=== PATIENT | male | born 1965 | race Two or more races ===

== ENCOUNTER 2024-12-25 20:32 | Inpatient (IN) | payer MEDICARE, OTHER ==
[~2024-12-25] VITALS: Ht 177.8 cm; Wt 105.7 kg
--- NOTE | 2024-12-25 20:53 | ED.PDOC ---
Altered Mental Status HPI Comments 59 year old male presents to the ED with the c/c of Generalized weakness. Per EMS a by standard called 911 because they noticed pt wandering mindlessly in his wheel chair, and being confused about where he was going. Pt is aware of questions being asked, but it very hard to understand at this period in time. Pt notes that he has Mental problems. Pt has a PMHx of Seizures, and is potentially Homeless at this period in time. No Trauma noted. Time Seen by MD: 20:48 Reviewed Notes: Nurses Notes, Chief Environmental Commitment Officer Notes, Medications, Allergies Allergies: Coded Allergies: NO KNOWN ALLERGIES (Unverified , 12/25/24) Information Source: Patient, Emergency Med Personnel Mode of Arrival: EMS Severity: Mild Timing: Hours Duration: Since onset Prehospital treatment: None Quality: Decreased Alertness Recent: None History of: Seizure Associated Signs and Symptoms: None Past Medical History PAST MEDICAL HISTORY: Unknown Surgical History: Denies all surgeries Social History Smoker: Unknown Alcohol: Unknown Drugs: Unknown Lives In: Homeless Constitutional: reports: weakness; denies: chills, diaphoresis, fatigue, fever, malaise, sweats, others EENTM: denies: blurred vision, double vision, ear bleeding, ear discharge, ear drainage, ear pain, ear ringing, eye pain, eye redness, hearing loss, mouth pain, mouth swelling, nasal discharge, nose bleeding, nose congestion, nose pain, photophobia, tearing, throat pain, throat swelling, voice changes, others Respiratory: denies: cough, hemoptysis, orthopnea, SOB at rest, shortness of breath, SOB with excertion, stridor, wheezing, others Cardiovascular: denies: chest pain, dizzy spells, diaphoresis, Dyspnea on exertion, edema, irregular heart beat, left arm pain, lightheadedness, palpitations, PND, syncope, others Gastrointestinal: denies: abdomen distended, abdominal pain, blood streaked bowels, constipated, diarrhea, dysphagia, difficulty swallowing, hematemesis, melena, nausea, poor appetite, poor fluid intake, rectal bleeding, rectal pain, vomiting, others Genitourinary: denies: burning, dysuria, flank pain, frequency, hematuria, incontinence, penile discharge, penile sore, pain, testicle pain, testicle swelling, urgency, others Neurological: reports: speech problems, others (Confusion); denies: dizziness, fainting, headache, left sided numbness, left sided weakness, numbness, paresthesia, pre-existing deficit, right sided numbness, right sided weakness, seizure, tingling, tremors, weakness Musculoskeletal: denies: back pain, gout, joint pain, joint swelling, muscle pain, muscle stiffness, neck pain, others Integumetry: denies: bruises, change in color, change in hair/nails, dryness, laceration, lesions, lumps, rash, wounds, others Allergic/Immunocompromised: denies: Difficulty Healing, Frequent Infections, Hives, Itching, others Hematologic/Lymphatic: denies: anemia, blood clots, easy bleeding, easy bruising, swollen glands, others Endocrine: denies: excessive hunger, excessive sweating, excessive thirst, excessive urination, flushing, intolerance to cold, intolerance to heat, unexplained weight gain, unexplained weight loss, others Psychiatric: denies: anxiety, bipolar disorder, depression, hopeless, panic disorder, schizophrenia, sleepless, suicidal, others All Other Systems: Reviewed and Negative Physical Exam General Appearance: Normal, Other (Chronic ill appearing) HEENT: Normal ENT Inspection, Pharynx Normal, TMs Normal Neck: Full Range of Motion, Non-Tender, Normal, Normal Inspection Respiratory: Chest Non-Tender, Lungs Clear, No Accessory Muscle Use, No Respiratory Distress, Normal Breath Sounds Cardiovascular: No Edema, No JVD, No Murmur, No Gallop, Normal Peripheral Pulses, Regular Rate/Rhythm Breast Exam: Deferred Gastrointestinal: No Organomegaly, Non Tender, No Pulsatile Mass, Normal Bowel Sounds, Soft Genitalia: Deferred Pelvic: Deferred Rectal: Deferred Extremities: No calf tenderness, Normal capillary refill, Normal inspection, Normal range of motion, Non-tender, No pedal edema Musculoskeletal : Apperance: Normal Neurologic: Alert, 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 Was a procedure done?: No Differential Diagnosis (ALOC) Differential Diagnosis: Dehydration, Hypoglycemia, DKA, Encephalopathy, Meningitis, Sepsis, Hypoxemia, Seizure, CVA, Mass Lesion, SAH, Drug Overdose, ETOH Intoxication, Other X-Ray, Labs, Meds, VS Vital Signs Date Time Temp Pulse Resp B/P (MAP) Pulse Ox O2 Delivery O2 Flow Rate FiO2 12/25/24 20:40 98.0 110 16 144/93 (110) 94 98.0 12/25/24 20:33 110 Lab Test 12/25/24 20:51 Range/Units White Blood Count 12.7 H 4.4-10.8 10^3/uL Red Blood Count 5.22 4.5-5.90 10^6/uL Hemoglobin 15.0 13.5-17.5 g/dL Hematocrit 44.8 41.0-53.0 % Mean Corpuscular Volume 85.9 80.0-100.0 fL Mean Corpuscular Hemoglobin 28.7 28.0-32.0 pg Mean Corpuscular Hemoglobin Concent 33.4 32.0-36.0 g/dL Red Cell Distribution Width 13.4 11.8-14.3 % Platelet Count 281 140-450 10^3/uL Mean Platelet Volume 8.2 6.9-10.8 fL Neutrophils (%) (Auto) 69.4 37.0-80.0 % Lymphocytes (%) (Auto) 23.0 10.0-50.0 % Monocytes (%) (Auto) 5.9 0.0-12.0 % Eosinophils (%) (Auto) 0.7 0.0-7.0 % Basophils (%) (Auto) 1.0 0.0-2.0 % Neutrophils # (Auto) 8.8 H 1.6-8.6 10 ^3/uL Lymphocytes # (Auto) 2.9 0.4-5.4 10 ^3/uL Monocytes # (Auto) 0.8 0-1.3 10 ^3/uL Eosinophils # (Auto) 0.1 0-0.8 10 ^3/uL Basophils # (Auto) 0.1 0-0.2 10 ^3/uL Nucleated Red Blood Cells 0.1 % Sodium Level 143 136-145 mmol/L Potassium Level 4.3 3.5-5.1 mmol/L Chloride Level 107 98-107 mmol/L Carbon Dioxide Level 25 20-31 mmol/L Anion Gap 11 5-15 Blood Urea Nitrogen 19 9-23 mg/dL Creatinine 1.14 0.700-1.30 mg/dL Glomerular Filtration Rate Calc 74 >90 mL/min BUN/Creatinine Ratio 16.7 10.0-20.0 Serum Glucose 126 H 74-106 mg/dL Calcium Level 10.4 8.7-10.4 mg/dL Total Bilirubin 0.3 0.2-1.0 mg/dL Aspartate Amino Transferase (AST) 14 13-40 U/L Alanine Aminotransferase (ALT) 15 7-40 U/L Alkaline Phosphatase 101 46-116 U/L Total Protein 7.5 5.7-8.2 g/dL Albumin 4.6 3.2-4.8 g/dL Salicylates Level < 3.0 -30 mg/dL Acetaminophen Level < 2.0 L 10.0-20.0 UG/ML Plasma/Serum Blood Alcohol < 3.0 <10 mg/dL Time of 1ST Reevaluation: 21:10 Reevaluation 1ST: Unchanged Patient Education/Counseling: Diagnosis, Treatment Family Education/Counseling: No Family Present Departure 1 Departure Time of Disposition: 04:21 Impression: Primary Impression: Schizophrenia Disposition: 64 [facility] Condition: Stable Discharged With: Self Comments Patient is cleared medically at this time. Labs reviewed. Requested mental health consultation and possible voluntary placement for mental health. Critical Care Note Critical Care Time?: No Stability Stability form required: No Heart Score Heart Score: Heart Score Response (Comments) Value History N/A 0 EKG N/A 0 Age N/A 0 Risk Factors N/A 0 Troponin N/A 0 Total 0 I personally scribed for SHIVAM PEREZ MD ([email or web address]) on 12/25/24 at 20:53. Electronically submitted by Reza Jones ([email or web address]). SHIVAM PEREZ MD December 25, 2024 20:53
[2024-12-25 21:33] LABS: Basophils # (auto) 0.1 10 ^3/uL (0-0.2); Eosinophils # (auto) 0.1 10 ^3/uL (0-0.8); Eosinophils % (auto) 0.7 % (0.0-7.0); Hematocrit 44.8 % (41.0-53.0); Lymphocytes # (auto) 2.9 10 ^3/uL (0.4-5.4); Mean Corpuscular Hemoglobin 28.7 pg (28.0-32.0); Mean Corpuscular Hgb Conc. 33.4 g/dL (32.0-36.0); Mean Corpuscular Volume 85.9 fL (80.0-100.0); Monocytes # (auto) 0.8 10 ^3/uL (0-1.3); Monocytes % (auto) 5.9 % (0.0-12.0); Neutrophils # (auto) 8.8 10 ^3/uL (1.6-8.6); Neutrophils % (auto) 69.4 % (37.0-80.0); Nucleated Red Blood Cells % 0.1 %; Platelet Count (auto) 281 10^3/uL (140-450); Red Blood Cells 5.22 10^6/uL (4.5-5.90); Red Cell Distribution Width 13.4 % (11.8-14.3); White Blood Cell 12.7 10^3/uL (4.4-10.8)
[2024-12-25 21:40] LABS: Alanine Aminotransferase 15 U/L (7-40); Albumin 4.6 g/dL (3.2-4.8); Alkaline Phosphatase 101 U/L (46-116); Anion Gap 11 (5-15); Aspartate Aminotransferase 14 U/L (13-40); BUN/Creatinine Ratio 16.7 (10.0-20.0); Blood Urea Nitrogen 19 mg/dL (9-23); Carbon Dioxide 25 mmol/L (20-31); Chloride 107 mmol/L (98-107); Potassium 4.3 mmol/L (3.5-5.1); Sodium 143 mmol/L (136-145); Total Protein 7.5 g/dL (5.7-8.2)
[2024-12-25 21:41] LABS: Acetaminophen < 2.0 UG/ML (10.0-20.0); Salicylate < 3.0 mg/dL (-30)
[2024-12-25 21:44] LABS: Bilirubin, Total 0.3 mg/dL (0.2-1.0); Blood Alcohol < 3.0 mg/dL (<10); Calcium 10.4 mg/dL (8.7-10.4); Glucose 126 mg/dL (74-106)
[2024-12-26 02:00] VITALS: PULSE 100; RESP 20; O2SAT 96
--- NOTE | 2024-12-26 05:26 | ECG ---
[facility] Test Date: 2024-12-25 Test Time: 20:33:50 Pat Name: SHERIF VALENCIA Department: ED Room: 0288 Gender: M Material Handling Supervisor: DANI : 1965 Requested By: SHIVAM PERZE Order Number: [id number] Reading MD: Luis Simms Measurements Intervals [place] Rate: 110 P: 42 MS: 161 QRS: 124 QRSD: 93 T: 18 QT: 332 QTc: 450 Interpretive Statements Sinus tachycardia Consider right ventricular hypertrophy Electronically Signed On 12-30-2024 11:44:56 PDT by Luis Simms Please click the below link to view image of tracing.
[2024-12-26] MEDS ORDERED: ONDANSETRON HCL 4 MG/2 ML VIAL IV ONE (06:00)
[2024-12-26] MEDS ORDERED: HYDROmorphone HCL 2 MG/ML VL/or syr IV ONE (06:00)
[2024-12-26 08:42] VITALS: PULSE 78; RESP 14; O2SAT 92
--- NOTE | 2024-12-26 10:15 | DVHINCON2 ---
Date of Service if different f: December 26, 2024 Consultation (GROVE) Labs Laboratory Tests Test 12/25/24 20:51 12/26/24 08:41 White Blood Count 12.7 10^3/uL (4.4-10.8) Red Blood Count 5.22 10^6/uL (4.5-5.90) Hemoglobin 15.0 g/dL (13.5-17.5) Hematocrit 44.8 % (41.0-53.0) Mean Corpuscular Volume 85.9 fL (80.0-100.0) Mean Corpuscular Hemoglobin 28.7 pg (28.0-32.0) Mean Corpuscular Hemoglobin Concent 33.4 g/dL (32.0-36.0) Red Cell Distribution Width 13.4 % (11.8-14.3) Platelet Count 281 10^3/uL (140-450) Mean Platelet Volume 8.2 fL (6.9-10.8) Neutrophils (%) (Auto) 69.4 % (37.0-80.0) Lymphocytes (%) (Auto) 23.0 % (10.0-50.0) Monocytes (%) (Auto) 5.9 % (0.0-12.0) Eosinophils (%) (Auto) 0.7 % (0.0-7.0) Basophils (%) (Auto) 1.0 % (0.0-2.0) Neutrophils # (Auto) 8.8 10 ^3/uL (1.6-8.6) Lymphocytes # (Auto) 2.9 10 ^3/uL (0.4-5.4) Monocytes # (Auto) 0.8 10 ^3/uL (0-1.3) Eosinophils # (Auto) 0.1 10 ^3/uL (0-0.8) Basophils # (Auto) 0.1 10 ^3/uL (0-0.2) Nucleated Red Blood Cells 0.1 % Sodium Level 143 mmol/L (136-145) Potassium Level 4.3 mmol/L (3.5-5.1) Chloride Level 107 mmol/L (98-107) Carbon Dioxide Level 25 mmol/L (20-31) Anion Gap 11 (5-15) Blood Urea Nitrogen 19 mg/dL (9-23) Creatinine 1.14 mg/dL (0.700-1.30) Glomerular Filtration Rate Calc 74 mL/min (>90) BUN/Creatinine Ratio 16.7 (10.0-20.0) Serum Glucose 126 mg/dL (74-106) Calcium Level 10.4 mg/dL (8.7-10.4) Total Bilirubin 0.3 mg/dL (0.2-1.0) Aspartate Amino Transf (AST/SGOT) 14 U/L (13-40) Alanine Aminotransferase (ALT/SGPT) 15 U/L (7-40) Alkaline Phosphatase 101 U/L (46-116) Total Protein 7.5 g/dL (5.7-8.2) Albumin 4.6 g/dL (3.2-4.8) Salicylates Level < 3.0 mg/dL (-30) Acetaminophen Level < 2.0 UG/ML (10.0-20.0) Plasma/Serum Blood Alcohol < 3.0 mg/dL (<10) Bedside Glucose 98 mg/dl (70-106) Appetite: Fair Appearance: Older than stated age Psychomotor activity: WNL Behavioral: Cooperative Eye contact: Appropriate Speech: Dysarthric, Mumbled Affect: Mood Congruent Mood: Euthymic Thought processes: Linear/Goal-directed Thought content: WNL Suicidal ideations: Absent Homicidal ideations: Absent Orientation: Person, Place, Time, Situation Memory intact: Recent Intellect: Average Abstractability: WNL Concentration: Adequate Attention: Adequate Judgement: WNL Insight: Fair Vitals Vital Signs Date Time Temp Pulse Resp B/P (MAP) Pulse Ox O2 Delivery O2 Flow Rate FiO2 12/26/24 08:42 98.6 78 14 142/74 (96) 92 98.6 12/26/24 08:42 Room Air* 0 21 Treatment plan discussed: With staff Medication adjusted: No Diagnosis: Hx of TBI Plan : Although speech is very difficult to hear, he is able to deny any current psychiatric problems, He appears to ask for assistance with housing. Recommend social human services assistants referral for assistance with stable housing or/or nursing care facility after medical clearance Patient does not appear to warrant inpatient psychiatric hospitalization at this time. History of Present Illness Reason for Consult : patient is confused HPI : This is a 59-year-old male with unknown prior psychiatric history, he presents here via ambulance after he was found on the street confused. On evaluation via telepsychiatry, his speech is very difficult to understand and when asked to narrative writer words down, this is also not readable. He was finally able to say that he has a hx of TBI in jul 1985, this likely altered his speech. [facility] unclear if this is where he was staying, again difficult to understand. He does agrees that he would like help with a place to stay. He also denies having suicidal/homicidal ideation. He denies auditory/visual hallucinations or paranoid by shaking his head and saying No He is oriented to name, place, date, situation. Other history is limited. Past Psychiatric History : He denies prior psych diagnoses, hospitalizations or suicide attempts Past Medical History : Hx of TBI Social History : Unclear if has housing or currently homeless. NEGRO WESTON DNP December 26, 2024 10:15
[2024-12-27 02:00] VITALS: RESP 16; O2SAT 97
[2024-12-27 07:30] VITALS: PULSE 73; RESP 18; O2SAT 95
[2024-12-28 05:07] VITALS: RESP 18
[2024-12-28 08:15] VITALS: PULSE 85; RESP 15; O2SAT 95
--- NOTE | 2024-12-28 19:59 | DVHHP2 ---
Admitting Diagnosis: Generalized weakness History of Present Illness 59 year old male presents to the ED with the c/c of Generalized weakness. Per EMS a by standard called 911 because they noticed pt wandering mindlessly in his wheel chair, and being confused about where he was going. Pt is aware of questions being asked, but it very hard to understand at this period in time. Pt notes that he has Mental problems. Pt has a PMHx of Seizures, and is potentially Homeless at this period in time. No Trauma noted. Past Medical History PAST MEDICAL HISTORY: Unknown Surgical History: Denies all surgeries Social History Smoker: Unknown Alcohol: Unknown Drugs: Unknown Lives In: Homeless Allergies: Coded Allergies: NO KNOWN ALLERGIES (Unverified , 12/25/24) Vital Signs Vital Signs Date Time Temp Pulse Resp B/P (MAP) Pulse Ox O2 Delivery O2 Flow Rate FiO2 12/28/24 16:00 81 19 103/52 (69) 96 12/28/24 14:00 98.4 98.4 12/28/24 08:15 Room Air* 0 21 Physical Exam Generally 69 years old male, well nourished well developed. Resting in bed. No apparent distress HEENT-atraumatic, normocephalic Heart-regular rate and rhythm Lungs clear to auscultate Abdomen soft nontender nondistended Musculoskeletal-no edema cyanosis Neuro-awake, alert, ESR, not following commands. Full range of motion Results Labs Test 12/28/24 20:20 12/26/24 08:41 12/25/24 20:51 Range/Units POC Glucose 98 70-106 mg/dl White Blood Count 12.7 H 4.4-10.8 10^3/uL Red Blood Count 5.22 4.5-5.90 10^6/uL Hemoglobin 15.0 13.5-17.5 g/dL Hematocrit 44.8 41.0-53.0 % Mean Corpuscular Volume 85.9 80.0-100.0 fL Mean Corpuscular Hemoglobin 28.7 28.0-32.0 pg Mean Corpuscular Hemoglobin Concent 33.4 32.0-36.0 g/dL Red Cell Distribution Width 13.4 11.8-14.3 % Platelet Count 281 140-450 10^3/uL Mean Platelet Volume 8.2 6.9-10.8 fL Neutrophils (%) (Auto) 69.4 37.0-80.0 % Lymphocytes (%) (Auto) 23.0 10.0-50.0 % Monocytes (%) (Auto) 5.9 0.0-12.0 % Eosinophils (%) (Auto) 0.7 0.0-7.0 % Basophils (%) (Auto) 1.0 0.0-2.0 % Neutrophils # (Auto) 8.8 H 1.6-8.6 10 ^3/uL Lymphocytes # (Auto) 2.9 0.4-5.4 10 ^3/uL Monocytes # (Auto) 0.8 0-1.3 10 ^3/uL Eosinophils # (Auto) 0.1 0-0.8 10 ^3/uL Basophils # (Auto) 0.1 0-0.2 10 ^3/uL Nucleated Red Blood Cells 0.1 % Sodium Level 143 136-145 mmol/L Potassium Level 4.3 3.5-5.1 mmol/L Chloride Level 107 98-107 mmol/L Carbon Dioxide Level 25 20-31 mmol/L Anion Gap 11 5-15 Blood Urea Nitrogen 19 9-23 mg/dL Creatinine 1.14 0.700-1.30 mg/dL Glomerular Filtration Rate Calc 74 >90 mL/min BUN/Creatinine Ratio 16.7 10.0-20.0 Serum Glucose 126 H 74-106 mg/dL Calcium Level 10.4 8.7-10.4 mg/dL Total Bilirubin 0.3 0.2-1.0 mg/dL Aspartate Amino Transferase (AST) 14 13-40 U/L Alanine Aminotransferase (ALT) 15 7-40 U/L Alkaline Phosphatase 101 46-116 U/L Total Protein 7.5 5.7-8.2 g/dL Albumin 4.6 3.2-4.8 g/dL Salicylates Level < 3.0 -30 mg/dL Acetaminophen Level < 2.0 L 10.0-20.0 UG/ML Plasma/Serum Blood Alcohol < 3.0 <10 mg/dL Primary Diagnosis Schizophrenia Dysarthria rule out stroke S/p right temporal craniotomy with 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 If CT head negative start Lovenox for DVT prophylaxis No GI prophylaxis needed Regular diet Plan discussed with: Patient Problems List: (1) Dysarthria (2) Altered mental status Status: Acute (3) Schizophrenia Status: Acute Date of Service: December 28, 2024 Billing Provider: SHERIF LOVE MD Common Visit Codes: [id number] INP/OBS CARE (MOD) SHERIF LOVE MD December 28, 2024 19:59
--- NOTE | 2024-12-28 20:31 | DVH ---
CT HEAD WITHOUT CONTRAST INDICATION: r/o cva COMPARISON: None TECHNIQUE: CT of the head without intravenous contrast. RADIATION DOSE: CTDIvol: 58.58 mGy, DLP: 939.0 mGy*cm FINDINGS: There is no evidence of intracranial hemorrhage, acute infarct, extra-axial collection, mass effect, midline shift, herniation or hydrocephalus. S/p right temporal craniotomy with large areas of gliosi s / old infarcts in right temporal and occipial lobes. Visualized paranasal sinuses and mastoid air cells are clear. Soft tissues and osseous structures are unremarkable. IMPRESSION: No acute intracranial abnormality identified. S/p right temporal craniotomy with large areas of glios is/old infarcts in right temporal and occipial lobes.
[2024-12-28] MEDS ORDERED: ACETAMINOPHEN 325 MG TAB PO PRN (20:45)
[2024-12-28] MEDS ORDERED: DOCUSATE SOD 100 MG CAP PO PRN (20:45)
[2024-12-28] MEDS ORDERED: ONDANSETRON HCL 4 MG/2 ML VIAL IV PRN (20:45)
[2024-12-28 20:47] LABS: Triglycerides 127 mg/dL (< 150)
[2024-12-28 20:50] LABS: Cholesterol 178 mg/dL (< 200)
[2024-12-28 20:52] LABS: HDL Cholesterol 36 mg/dL (40-59); LDL Cholesterol 135 mg/dL (< 100)
[2024-12-28 21:00] VITALS: BP 123/55; PULSE 97; RESP 19; TEMP 98.3; O2SAT 95
[2024-12-28] MEDS: SODIUM CHLOR 0.9% PF (SALINE LOCK) 10ML VIAL/SYR IV SCH (22:00)
[2024-12-28 22:53] VITALS: BP 123/55; PULSE 90; PULSE 95; RESP 18; RESP 19; TEMP 98.3; O2SAT 97
[2024-12-28] MEDS ORDERED: PHEN1CAP38 PO (23:20)
[2024-12-29] VITALS (7 sets, daily range): BP systolic 109–141; BP diastolic 58–90; PULSE 67–86; RESP 17–19; TEMP 97.8–98.5; O2SAT 95–98
[2024-12-29 07:49] LABS: Basophils # (auto) 0 10 ^3/uL (0-0.2); Basophils % (auto) 0.4 % (0.0-2.0); Eosinophils # (auto) 0.2 10 ^3/uL (0-0.8); Eosinophils % (auto) 2.6 % (0.0-7.0); Hematocrit 46.4 % (41.0-53.0); Hemoglobin 15.4 g/dL (13.5-17.5); Lymphocytes # (auto) 3.2 10 ^3/uL (0.4-5.4); Lymphocytes % (auto) 40.9 % (10.0-50.0); Mean Corpuscular Hemoglobin 28.9 pg (28.0-32.0); Mean Corpuscular Hgb Conc. 33.2 g/dL (32.0-36.0); Mean Corpuscular Volume 87.1 fL (80.0-100.0); Monocytes # (auto) 0.7 10 ^3/uL (0-1.3); Monocytes % (auto) 9.1 % (0.0-12.0); Neutrophils # (auto) 3.7 10 ^3/uL (1.6-8.6); Nucleated Red Blood Cells % 0.2 %; Platelet Count (auto) 257 10^3/uL (140-450); Red Blood Cells 5.33 10^6/uL (4.5-5.90); Red Cell Distribution Width 13.4 % (11.8-14.3); White Blood Cell 7.8 10^3/uL (4.4-10.8)
[2024-12-29 08:05] LABS: Alanine Aminotransferase 17 U/L (7-40); Albumin 4.1 g/dL (3.2-4.8); Alkaline Phosphatase 92 U/L (46-116); Anion Gap 10 (5-15); Aspartate Aminotransferase 13 U/L (13-40); BUN/Creatinine Ratio 12.2 (10.0-20.0); Blood Urea Nitrogen 12 mg/dL (9-23); Calcium 9.6 mg/dL (8.7-10.4); Carbon Dioxide 24 mmol/L (20-31); Chloride 104 mmol/L (98-107); Glucose 101 mg/dL (74-106); Sodium 138 mmol/L (136-145); Total Protein 6.8 g/dL (5.7-8.2)
[2024-12-29 08:06] LABS: Bilirubin, Total 0.4 mg/dL (0.2-1.0)
[2024-12-29] MEDS: ENOXAPARIN SOD 40 MG/0.4 ML SYRINGE SC SCH (10:00)
--- NOTE | 2024-12-29 13:36 | DVHPN2 ---
Subjective Patient is seen and examined at bedside. No seizure activity. Telepsych has see the patient and cleared for discharge. Reviewed: Care Plan, H&P, Labs, Medications, Previous Orders, Radiology Changes from previous H/P or p: No Changes Objective Vitals Vital Signs Date Time Temp Pulse Resp B/P (MAP) Pulse Ox O2 Delivery O2 Flow Rate FiO2 12/29/24 13:14 98.0 86 19 117/84 (95) 97 98.0 12/29/24 08:00 Room Air* 0 21 Intake/Output Intake and Output 12/29/24 07:00 Intake Total 300 ml Balance 300 ml Intake Oral 300 ml # Voids 1 # Bowel Movements 1 General Appearance: Alert, Cooperative, No acute distress HEENT: Atraumatic, PERRLA, EOMI, Mucous membr. moist/pink Neck: Supple Cardiovascular: Regular rate, Normal S1, Normal S2, No murmurs, Gallops, Rubs Abdomen: Normal bowel sounds, Soft, No tenderness Neuro: Cranial nerves 3-12 NL Psych/Mental Status: Mental status NL Medications Current Medications Medications Dose Ordered Sig/Bobbi Route Start Time Stop Time Status Last Admin Dose Admin Sodium Chloride 10 ml Q8HR IV 12/28/24 22:00 12/29/24 05:21 10 ML Docusate Sodium 100 mg BIDPRN PRN PO 12/28/24 20:45 Acetaminophen 650 mg Q6HP PRN PO 12/28/24 20:45 Ondansetron HCl 4 mg Q4HP PRN IV 12/28/24 20:45 Enoxaparin Sodium 40 mg DAILY SC 12/29/24 10:00 12/29/24 10:00 40 MG Laboratory Results Laboratory Tests 12/29/24 06:42 Chemistry Test 12/29/24 06:42 Albumin 4.1 g/dL (3.2-4.8) Calcium Level 9.6 mg/dL (8.7-10.4) Total Protein 6.8 g/dL (5.7-8.2) Lipid panel Test 12/28/24 20:20 Cholesterol Level 178 mg/dL (< 200) HDL Cholesterol 36 mg/dL (40-59) L Triglycerides Level 127 mg/dL (< 150) LFT Test 12/29/24 06:42 Alanine Aminotransferase (ALT) 17 U/L (7-40) Alkaline Phosphatase 92 U/L (46-116) Aspartate Amino Transferase (AST) 13 U/L (13-40) Total Bilirubin 0.4 mg/dL (0.2-1.0) HgA1c, TSH Test 12/28/24 20:20 Hemoglobin A1c 5.1 % A1C (<5.7) Microbiology Microbiology Date/Time Source Procedure Growth Status 12/28/24 23:10 Nose MRSA Screen - Final Complete Labs and/or images reviewed: Labs reviewed by me Assessment/Plan Assessment/Plan Schizophrenia Dysarthria rule out stroke S/p right temporal craniotomy with 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 Psych has cleared the patient for discharge. I am going to discharge the patient today Refill medication for seizure This medical document was created using an electronic medical record system with M[employer]M [employer] direct computerized dictation system. Although this document has been carefully reviewed, there may still be some phonetic and typographical errors. These areas are purely typographical due to imperfections of the software programs, and do not reflect any compromise in the patient's medical care. Addendum: Per RN, social sciences chair wanted to hold the patient due to APS report and placement. We will discuss with social sciences chair regarding to aPS Plan discussed with: Patient Date of Service: December 29, 2024 Billing Provider: DOMINIK WHALEY MD Common Visit Codes: [id number] INP/OBS CARE(HIGH) DOMINIK WHALEY MD December 29, 2024 13:36
[2024-12-29] MEDS ORDERED: PHEN1CAP38 PO (14:21)
--- NOTE | 2024-12-29 14:24 | DVHDS2 ---
Discharge Summary Date of Admission December 28, 2024 at 20:20 Date of Discharge: December 29, 2024 Labs/Diagnostic Data: Laboratory Results Test 12/29/24 06:42 12/28/24 20:20 12/26/24 08:41 12/25/24 20:51 White Blood Count 7.8 10^3/uL (4.4-10.8) Red Blood Count 5.33 10^6/uL (4.5-5.90) Hemoglobin 15.4 g/dL (13.5-17.5) Hematocrit 46.4 % (41.0-53.0) Mean Corpuscular Volume 87.1 fL (80.0-100.0) Mean Corpuscular Hemoglobin 28.9 pg (28.0-32.0) Mean Corpuscular Hemoglobin Concent 33.2 g/dL (32.0-36.0) Red Cell Distribution Width 13.4 % (11.8-14.3) Platelet Count 257 10^3/uL (140-450) Mean Platelet Volume 7.8 fL (6.9-10.8) Neutrophils (%) (Auto) 47.0 % (37.0-80.0) Lymphocytes (%) (Auto) 40.9 % (10.0-50.0) Monocytes (%) (Auto) 9.1 % (0.0-12.0) Eosinophils (%) (Auto) 2.6 % (0.0-7.0) Basophils (%) (Auto) 0.4 % (0.0-2.0) Neutrophils # (Auto) 3.7 10 ^3/uL (1.6-8.6) Lymphocytes # (Auto) 3.2 10 ^3/uL (0.4-5.4) Monocytes # (Auto) 0.7 10 ^3/uL (0-1.3) Eosinophils # (Auto) 0.2 10 ^3/uL (0-0.8) Basophils # (Auto) 0 10 ^3/uL (0-0.2) Nucleated Red Blood Cells 0.2 % Sodium Level 138 mmol/L (136-145) Potassium Level 4.0 mmol/L (3.5-5.1) Chloride Level 104 mmol/L (98-107) Carbon Dioxide Level 24 mmol/L (20-31) Anion Gap 10 (5-15) Blood Urea Nitrogen 12 mg/dL (9-23) Creatinine 0.98 mg/dL (0.700-1.30) Glomerular Filtration Rate Calc 88 mL/min (>90) BUN/Creatinine Ratio 12.2 (10.0-20.0) Serum Glucose 101 mg/dL (74-106) Calcium Level 9.6 mg/dL (8.7-10.4) Total Bilirubin 0.4 mg/dL (0.2-1.0) Aspartate Amino Transferase (AST) 13 U/L (13-40) Alanine Aminotransferase (ALT) 17 U/L (7-40) Alkaline Phosphatase 92 U/L (46-116) Total Protein 6.8 g/dL (5.7-8.2) Albumin 4.1 g/dL (3.2-4.8) Hemoglobin A1c 5.1 % A1C (<5.7) Triglycerides Level 127 mg/dL (< 150) Cholesterol Level 178 mg/dL (< 200) LDL Cholesterol 135 mg/dL (< 100) HDL Cholesterol 36 mg/dL (40-59) POC Glucose 98 mg/dl (70-106) Salicylates Level < 3.0 mg/dL (-30) Acetaminophen Level < 2.0 UG/ML (10.0-20.0) Plasma/Serum Blood Alcohol < 3.0 mg/dL (<10) Other Laboratory Tests 12/29/24 06:42 Final Diagnosis/Problems List WEAKNESS Discharge Disposition: Home Discharge Instruct/Medications Diet: Regular Activity: No Restrictions, As Tolerated Follow Up/Referral: PCP 1-2 WEEKS Medications: RESUME HOME MEDS Discharge Statement: "Patient was advised to return to the ER or call 911 if any headaches, dizziness, shortness of breath, chest pain, abdominal pain, bleeding, fevers, or worsening of medical condition. Patient was counseled about treatment plan, medications, possible side effects, patientverbalized understanding. All questions were answered to the best of my ability. This discharge took greater then 30 minutes in planning, reviewing documentation, counseling the patient, and discussing with other team members." ASSESSMENT ASSESSMENT Assessment WEAKNESS DOMINIK WHALEY MD December 29, 2024 14:24
[2024-12-29] MEDS ORDERED: LORazepam 2MG/ML-1ML VIAL IV ONE (17:15)
[2024-12-30] VITALS (8 sets, daily range): BP systolic 119–134; BP diastolic 51–86; PULSE 70–90; RESP 16–18; TEMP 98–98.7; O2SAT 94–97
[2024-12-30 13:25] LABS: Basophils # (auto) 0 10 ^3/uL (0-0.2); Basophils % (auto) 0.4 % (0.0-2.0); Eosinophils # (auto) 0.2 10 ^3/uL (0-0.8); Eosinophils % (auto) 2.4 % (0.0-7.0); Hematocrit 44.7 % (41.0-53.0); Hemoglobin 15.2 g/dL (13.5-17.5); Lymphocytes # (auto) 2.8 10 ^3/uL (0.4-5.4); Mean Corpuscular Hemoglobin 29.1 pg (28.0-32.0); Mean Corpuscular Volume 85.6 fL (80.0-100.0); Monocytes # (auto) 0.7 10 ^3/uL (0-1.3); Neutrophils # (auto) 3.1 10 ^3/uL (1.6-8.6); Neutrophils % (auto) 46.2 % (37.0-80.0); Nucleated Red Blood Cells % 0.1 %; Platelet Count (auto) 253 10^3/uL (140-450); Red Blood Cells 5.22 10^6/uL (4.5-5.90); Red Cell Distribution Width 13.4 % (11.8-14.3); White Blood Cell 6.8 10^3/uL (4.4-10.8)
[2024-12-30 13:42] LABS: Alanine Aminotransferase 15 U/L (7-40); Albumin 4.3 g/dL (3.2-4.8); Alkaline Phosphatase 90 U/L (46-116); Anion Gap 9 (5-15); Blood Urea Nitrogen 13 mg/dL (9-23); Calcium 9.1 mg/dL (8.7-10.4); Carbon Dioxide 27 mmol/L (20-31); Chloride 102 mmol/L (98-107); Glucose 102 mg/dL (74-106); Sodium 138 mmol/L (136-145); Total Protein 6.9 g/dL (5.7-8.2)
[2024-12-30 13:43] LABS: Bilirubin, Total 0.4 mg/dL (0.2-1.0)
[2024-12-30 13:44] LABS: Aspartate Aminotransferase 12 U/L (13-40)
--- NOTE | 2024-12-30 14:09 | DVHPN2 ---
Subjective Patient is seen and examined at bedside. No seizure activity. Telepsych has see the patient and cleared for discharge. Reviewed: Care Plan, H&P, Labs, Medications, Previous Orders, Radiology Changes from previous H/P or p: No Changes Objective Vitals Vital Signs Date Time Temp Pulse Resp B/P (MAP) Pulse Ox O2 Delivery O2 Flow Rate FiO2 12/30/24 09:30 98.6 70 18 119/62 (81) 95 98.6 12/30/24 08:00 Room Air* 0 21 Intake/Output Intake and Output 12/30/24 07:00 Intake Total 2200 ml Output Total 600 ml Balance 1600 ml Intake Oral 2200 ml Output Urine Total 600 ml # Voids 4 # Bowel Movements 3 General Appearance: Alert, Cooperative, No acute distress HEENT: Atraumatic, PERRLA, EOMI, Mucous membr. moist/pink Neck: Supple Cardiovascular: Regular rate, Normal S1, Normal S2, No murmurs, Gallops, Rubs Abdomen: Normal bowel sounds, Soft, No tenderness Neuro: Cranial nerves 3-12 NL Psych/Mental Status: Mental status NL Medications Current Medications Medications Dose Ordered Sig/Bobbi Route Start Time Stop Time Status Last Admin Dose Admin Sodium Chloride 10 ml Q8HR IV 12/28/24 22:00 12/30/24 06:00 10 ML Docusate Sodium 100 mg BIDPRN PRN PO 12/28/24 20:45 Acetaminophen 650 mg Q6HP PRN PO 12/28/24 20:45 Ondansetron HCl 4 mg Q4HP PRN IV 12/28/24 20:45 Enoxaparin Sodium 40 mg DAILY SC 12/29/24 10:00 12/30/24 10:01 40 MG Laboratory Results Laboratory Tests 12/30/24 13:03 Chemistry Test 12/30/24 13:03 Albumin 4.3 g/dL (3.2-4.8) Calcium Level 9.1 mg/dL (8.7-10.4) Total Protein 6.9 g/dL (5.7-8.2) LFT Test 12/30/24 13:03 Alanine Aminotransferase (ALT) 15 U/L (7-40) Alkaline Phosphatase 90 U/L (46-116) Aspartate Amino Transferase (AST) 12 U/L (13-40) L Total Bilirubin 0.4 mg/dL (0.2-1.0) Microbiology Microbiology Date/Time Source Procedure Growth Status 12/28/24 23:10 Nose MRSA Screen - Final Complete Assessment/Plan Assessment/Plan Schizophrenia Dysarthria rule out stroke S/p right temporal craniotomy with 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 Psych has cleared the patient for discharge. Patient was discharged yesterday. Waiting for casework manager. Per RN last night, casework manager request to hold discharge for placement? Refill medication for seizure This medical document was created using an electronic medical record system with [employer] direct computerized dictation system. Although this document has been carefully reviewed, there may still be some phonetic and typographical errors. These areas are purely typographical due to imperfections of the software programs, and do not reflect any compromise in the patient's medical care. Plan discussed with: Patient, Other (rn) My Orders Orders - DOMINIK WHALEY MD Procedure Category Date Status Time Discharge DISCHARGE 12/29/24 Transmitted 14:21 Date of Service: December 30, 2024 Billing Provider: DOMINIK WHALEY MD Common Visit Codes: [id number] INP/OBS CARE(HIGH) DOMINIK WHALEY MD December 30, 2024 14:09
[2024-12-31] VITALS (8 sets, daily range): BP systolic 100–128; BP diastolic 50–76; PULSE 69–92; RESP 17–20; TEMP 97.8–98.4; O2SAT 92–98
[2024-12-31 09:57] LABS: Basophils # (auto) 0.1 10 ^3/uL (0-0.2); Basophils % (auto) 0.8 % (0.0-2.0); Eosinophils # (auto) 0.1 10 ^3/uL (0-0.8); Eosinophils % (auto) 1.5 % (0.0-7.0); Hematocrit 48.8 % (41.0-53.0); Hemoglobin 16.5 g/dL (13.5-17.5); Lymphocytes # (auto) 3.1 10 ^3/uL (0.4-5.4); Lymphocytes % (auto) 37.5 % (10.0-50.0); Mean Corpuscular Hgb Conc. 33.7 g/dL (32.0-36.0); Mean Corpuscular Volume 85.9 fL (80.0-100.0); Monocytes # (auto) 0.7 10 ^3/uL (0-1.3); Monocytes % (auto) 8.5 % (0.0-12.0); Neutrophils # (auto) 4.3 10 ^3/uL (1.6-8.6); Neutrophils % (auto) 51.7 % (37.0-80.0); Nucleated Red Blood Cells % 0.1 %; Platelet Count (auto) 305 10^3/uL (140-450); Red Blood Cells 5.68 10^6/uL (4.5-5.90); Red Cell Distribution Width 13.5 % (11.8-14.3); White Blood Cell 8.3 10^3/uL (4.4-10.8)
[2024-12-31 10:15] LABS: Alanine Aminotransferase 16 U/L (7-40); Albumin 4.8 g/dL (3.2-4.8); Alkaline Phosphatase 101 U/L (46-116); Anion Gap 8 (5-15); Aspartate Aminotransferase 12 U/L (13-40); BUN/Creatinine Ratio 11.2 (10.0-20.0); Bilirubin, Total 0.5 mg/dL (0.2-1.0); Blood Urea Nitrogen 12 mg/dL (9-23); Calcium 10.1 mg/dL (8.7-10.4); Carbon Dioxide 27 mmol/L (20-31); Chloride 102 mmol/L (98-107); Glucose 127 mg/dL (74-106); Potassium 4.2 mmol/L (3.5-5.1); Sodium 137 mmol/L (136-145); Total Protein 7.8 g/dL (5.7-8.2)
--- NOTE | 2024-12-31 12:02 | DVHPN2 ---
Subjective Patient is seen and examined at bedside. No seizure activity. Telepsych has see the patient and cleared for discharge. Reviewed: Care Plan, H&P, Labs, Medications, Previous Orders, Radiology Changes from previous H/P or p: No Changes Objective Vitals Vital Signs Date Time Temp Pulse Resp B/P (MAP) Pulse Ox O2 Delivery O2 Flow Rate FiO2 12/31/24 08:51 98.4 76 20 122/65 (84) 97 98.4 12/31/24 08:00 Room Air* 0 21 Intake/Output Intake and Output 12/31/24 07:00 Intake Total 1300 ml Output Total 1000 ml Balance 300 ml Intake Oral 1300 ml Output Urine Total 1000 ml # Voids 5 # Bowel Movements 3 General Appearance: Alert, Cooperative, No acute distress HEENT: Atraumatic, PERRLA, EOMI, Mucous membr. moist/pink Neck: Supple Cardiovascular: Regular rate, Normal S1, Normal S2, No murmurs, Gallops, Rubs Abdomen: Normal bowel sounds, Soft, No tenderness Neuro: Cranial nerves 3-12 NL Psych/Mental Status: Mental status NL Medications Current Medications Medications Dose Ordered Sig/Bobbi Route Start Time Stop Time Status Last Admin Dose Admin Sodium Chloride 10 ml Q8HR IV 12/28/24 22:00 12/31/24 06:12 10 ML Docusate Sodium 100 mg BIDPRN PRN PO 12/28/24 20:45 Acetaminophen 650 mg Q6HP PRN PO 12/28/24 20:45 Ondansetron HCl 4 mg Q4HP PRN IV 12/28/24 20:45 Enoxaparin Sodium 40 mg DAILY SC 12/29/24 10:00 12/31/24 09:37 40 MG Laboratory Results Laboratory Tests 12/31/24 09:46 Chemistry Test 12/30/24 13:03 12/31/24 09:46 Albumin 4.3 g/dL (3.2-4.8) 4.8 g/dL (3.2-4.8) Calcium Level 9.1 mg/dL (8.7-10.4) 10.1 mg/dL (8.7-10.4) Total Protein 6.9 g/dL (5.7-8.2) 7.8 g/dL (5.7-8.2) LFT Test 12/30/24 13:03 12/31/24 09:46 Alanine Aminotransferase (ALT) 15 U/L (7-40) 16 U/L (7-40) Alkaline Phosphatase 90 U/L (46-116) 101 U/L (46-116) Aspartate Amino Transferase (AST) 12 U/L (13-40) L 12 U/L (13-40) L Total Bilirubin 0.4 mg/dL (0.2-1.0) 0.5 mg/dL (0.2-1.0) Microbiology Microbiology Date/Time Source Procedure Growth Status 12/28/24 23:10 Nose MRSA Screen - Final Complete Assessment/Plan Assessment/Plan Schizophrenia Dysarthria rule out stroke S/p right temporal craniotomy with 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 Psych has cleared the patient for discharge. Patient was discharged 12/29/24. Waiting for case management associate. Per RN, case management associate request to hold discharge for placement. Still waiting for placement Refill medication for seizure This medical document was created using an electronic medical record system with [employer] direct computerized dictation system. Although this document has been carefully reviewed, there may still be some phonetic and typographical errors. These areas are purely typographical due to imperfections of the software programs, and do not reflect any compromise in the patient's medical care. Plan discussed with: Patient, Other (rn) Date of Service: December 31, 2024 Billing Provider: DOMINIK WHALEY MD Common Visit Codes: [id number] INP/OBS CARE(HIGH) DOMINIK WHALEY MD December 31, 2024 12:02
[2025-01-01] VITALS (7 sets, daily range): BP systolic 103–138; BP diastolic 51–79; PULSE 70–94; RESP 17–20; TEMP 97.5–98.4; O2SAT 95–97
[2025-01-01 08:41] LABS: Basophils # (auto) 0 10 ^3/uL (0-0.2); Basophils % (auto) 0.5 % (0.0-2.0); Eosinophils # (auto) 0.2 10 ^3/uL (0-0.8); Eosinophils % (auto) 1.8 % (0.0-7.0); Hematocrit 47.7 % (41.0-53.0); Hemoglobin 15.9 g/dL (13.5-17.5); Lymphocytes # (auto) 3.4 10 ^3/uL (0.4-5.4); Lymphocytes % (auto) 38.8 % (10.0-50.0); Mean Corpuscular Hemoglobin 28.9 pg (28.0-32.0); Mean Corpuscular Hgb Conc. 33.3 g/dL (32.0-36.0); Mean Corpuscular Volume 86.9 fL (80.0-100.0); Monocytes # (auto) 0.7 10 ^3/uL (0-1.3); Monocytes % (auto) 8.5 % (0.0-12.0); Neutrophils # (auto) 4.4 10 ^3/uL (1.6-8.6); Neutrophils % (auto) 50.4 % (37.0-80.0); Nucleated Red Blood Cells % 0.1 %; Platelet Count (auto) 273 10^3/uL (140-450); Red Blood Cells 5.49 10^6/uL (4.5-5.90); Red Cell Distribution Width 13.7 % (11.8-14.3); White Blood Cell 8.6 10^3/uL (4.4-10.8)
[2025-01-01 08:57] LABS: Alanine Aminotransferase 19 U/L (7-40); Albumin 4.6 g/dL (3.2-4.8); Alkaline Phosphatase 96 U/L (46-116); Anion Gap 8 (5-15); BUN/Creatinine Ratio 12.4 (10.0-20.0); Bilirubin, Total 0.5 mg/dL (0.2-1.0); Blood Urea Nitrogen 12 mg/dL (9-23); Calcium 9.9 mg/dL (8.7-10.4); Carbon Dioxide 25 mmol/L (20-31); Chloride 105 mmol/L (98-107); Glucose 105 mg/dL (74-106); Potassium 4.3 mmol/L (3.5-5.1); Sodium 138 mmol/L (136-145); Total Protein 7.4 g/dL (5.7-8.2)
[2025-01-01 08:59] LABS: Aspartate Aminotransferase 13 U/L (13-40)
--- NOTE | 2025-01-01 11:34 | DVHPN2 ---
Subjective Patient is seen and examined at bedside. No seizure activity. Telepsych has see the patient and cleared for discharge. Reviewed: Care Plan, H&P, Labs, Medications, Previous Orders, Radiology Changes from previous H/P or p: No Changes Objective Vitals Vital Signs Date Time Temp Pulse Resp B/P (MAP) Pulse Ox O2 Delivery O2 Flow Rate FiO2 01/01/25 09:00 98.3 70 20 103/64 (77) 96 98.3 01/01/25 08:00 Room Air* 0 21 Intake/Output Intake and Output 01/01/25 07:00 Intake Total 1350 ml Output Total 800 ml Balance 550 ml Intake Oral 1350 ml Output Urine Total 800 ml # Voids 2 # Bowel Movements 4 General Appearance: Alert, Cooperative, No acute distress HEENT: Atraumatic, PERRLA, EOMI, Mucous membr. moist/pink Neck: Supple Cardiovascular: Regular rate, Normal S1, Normal S2, No murmurs, Gallops, Rubs Abdomen: Normal bowel sounds, Soft, No tenderness Neuro: Cranial nerves 3-12 NL Psych/Mental Status: Mental status NL Medications Current Medications Medications Dose Ordered Sig/Bobbi Route Start Time Stop Time Status Last Admin Dose Admin Sodium Chloride 10 ml Q8HR IV 12/28/24 22:00 01/01/25 06:03 10 ML Docusate Sodium 100 mg BIDPRN PRN PO 12/28/24 20:45 Acetaminophen 650 mg Q6HP PRN PO 12/28/24 20:45 Ondansetron HCl 4 mg Q4HP PRN IV 12/28/24 20:45 Enoxaparin Sodium 40 mg DAILY SC 12/29/24 10:00 01/01/25 09:35 40 MG Laboratory Results Laboratory Tests 01/01/25 08:29 Chemistry Test 01/01/25 08:29 Albumin 4.6 g/dL (3.2-4.8) Calcium Level 9.9 mg/dL (8.7-10.4) Total Protein 7.4 g/dL (5.7-8.2) LFT Test 01/01/25 08:29 Alanine Aminotransferase (ALT) 19 U/L (7-40) Alkaline Phosphatase 96 U/L (46-116) Aspartate Amino Transferase (AST) 13 U/L (13-40) Total Bilirubin 0.5 mg/dL (0.2-1.0) Microbiology Microbiology Date/Time Source Procedure Growth Status 12/28/24 23:10 Nose MRSA Screen - Final Complete Labs and/or images reviewed: Labs reviewed by me Assessment/Plan Assessment/Plan Schizophrenia Dysarthria rule out stroke S/p right temporal craniotomy with 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 Psych has cleared the patient for discharge. Patient was discharged 12/29/24. Waiting for case briefer. Per RN, case briefer request to hold discharge for placement. Still waiting for placement Will also get PT for transfer to bed to wheelchair. Refill medication for seizure This medical document was created using an electronic medical record system with [employer] direct computerized dictation system. Although this document has been carefully reviewed, there may still be some phonetic and typographical errors. These areas are purely typographical due to imperfections of the software programs, and do not reflect any compromise in the patient's medical care. Plan discussed with: Patient Date of Service: January 01, 2025 Billing Provider: DOMINIK WHALEY MD Common Visit Codes: [id number] INP/OBS CARE(HIGH) DOMINIK WHALEY MD January 01, 2025 11:34
[2025-01-02] VITALS (7 sets, daily range): BP systolic 107–129; BP diastolic 58–80; PULSE 61–81; RESP 18–19; TEMP 97.2–99.1; O2SAT 95–99
[2025-01-02 07:26] LABS: Basophils # (auto) 0 10 ^3/uL (0-0.2); Basophils % (auto) 0.4 % (0.0-2.0); Eosinophils # (auto) 0.2 10 ^3/uL (0-0.8); Hematocrit 45.9 % (41.0-53.0); Hemoglobin 15.7 g/dL (13.5-17.5); Lymphocytes # (auto) 3.7 10 ^3/uL (0.4-5.4); Lymphocytes % (auto) 43.5 % (10.0-50.0); Mean Corpuscular Hemoglobin 29.3 pg (28.0-32.0); Mean Corpuscular Hgb Conc. 34.2 g/dL (32.0-36.0); Mean Corpuscular Volume 85.8 fL (80.0-100.0); Monocytes # (auto) 0.7 10 ^3/uL (0-1.3); Monocytes % (auto) 8.1 % (0.0-12.0); Neutrophils # (auto) 3.9 10 ^3/uL (1.6-8.6); Nucleated Red Blood Cells % 0.1 %; Platelet Count (auto) 270 10^3/uL (140-450); Red Blood Cells 5.35 10^6/uL (4.5-5.90); Red Cell Distribution Width 13.3 % (11.8-14.3); White Blood Cell 8.5 10^3/uL (4.4-10.8)
[2025-01-02 07:52] LABS: Alanine Aminotransferase 20 U/L (7-40); Albumin 4.5 g/dL (3.2-4.8); Alkaline Phosphatase 95 U/L (46-116); Anion Gap 8 (5-15); BUN/Creatinine Ratio 10.2 (10.0-20.0); Blood Urea Nitrogen 10 mg/dL (9-23); Carbon Dioxide 27 mmol/L (20-31); Chloride 103 mmol/L (98-107); Glucose 100 mg/dL (74-106); Potassium 4.3 mmol/L (3.5-5.1); Sodium 138 mmol/L (136-145); Total Protein 7.4 g/dL (5.7-8.2)
[2025-01-02 07:53] LABS: Bilirubin, Total 0.5 mg/dL (0.2-1.0)
[2025-01-02 07:55] LABS: Aspartate Aminotransferase 13 U/L (13-40)
--- NOTE | 2025-01-02 12:23 | DVHPN2 ---
Subjective Patient is seen and examined at bedside. No seizure activity. Telepsych has see the patient and cleared for discharge. Reviewed: Care Plan, H&P, Labs, Medications, Previous Orders, Radiology Changes from previous H/P or p: No Changes Objective Vitals Vital Signs Date Time Temp Pulse Resp B/P (MAP) Pulse Ox O2 Delivery O2 Flow Rate FiO2 01/02/25 09:00 98.0 61 18 115/58 (77) 98 98.0 01/01/25 20:00 Room Air* 0 21 Intake/Output Intake and Output 01/02/25 07:00 Intake Total 1900 ml Output Total 450 ml Balance 1450 ml Intake Oral 1900 ml Output Urine Total 450 ml # Voids 3 # Bowel Movements 3 General Appearance: Alert, Cooperative, No acute distress HEENT: Atraumatic, PERRLA, EOMI, Mucous membr. moist/pink Neck: Supple Cardiovascular: Regular rate, Normal S1, Normal S2, No murmurs, Gallops, Rubs Abdomen: Normal bowel sounds, Soft, No tenderness Neuro: Cranial nerves 3-12 NL Psych/Mental Status: Mental status NL Medications Current Medications Medications Dose Ordered Sig/Bobbi Route Start Time Stop Time Status Last Admin Dose Admin Sodium Chloride 10 ml Q8HR IV 12/28/24 22:00 01/02/25 05:51 10 ML Docusate Sodium 100 mg BIDPRN PRN PO 12/28/24 20:45 Acetaminophen 650 mg Q6HP PRN PO 12/28/24 20:45 Ondansetron HCl 4 mg Q4HP PRN IV 12/28/24 20:45 Enoxaparin Sodium 40 mg DAILY SC 12/29/24 10:00 01/02/25 09:43 40 MG Laboratory Results Laboratory Tests 01/02/25 06:24 Chemistry Test 01/02/25 06:24 Albumin 4.5 g/dL (3.2-4.8) Calcium Level 10.0 mg/dL (8.7-10.4) Total Protein 7.4 g/dL (5.7-8.2) LFT Test 01/02/25 06:24 Alanine Aminotransferase (ALT) 20 U/L (7-40) Alkaline Phosphatase 95 U/L (46-116) Aspartate Amino Transferase (AST) 13 U/L (13-40) Total Bilirubin 0.5 mg/dL (0.2-1.0) Microbiology Microbiology Date/Time Source Procedure Growth Status 12/28/24 23:10 Nose MRSA Screen - Final Complete Labs and/or images reviewed: Labs reviewed by me Assessment/Plan Assessment/Plan Schizophrenia Dysarthria rule out stroke S/p right temporal craniotomy with 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 Psych has cleared the patient for discharge. Patient was discharged 12/29/24. Waiting for case planner. Per RN, case planner request to hold discharge for placement. Still waiting for placement Will also get PT for transfer to bed to wheelchair. Refill medication for seizure This medical document was created using an electronic medical record system with [employer] direct computerized dictation system. Although this document has been carefully reviewed, there may still be some phonetic and typographical errors. These areas are purely typographical due to imperfections of the software programs, and do not reflect any compromise in the patient's medical care. Plan discussed with: Patient, Other (RN) My Orders Orders - DOMINIK WHALEY MD Procedure Category Date Status Time * Promotions Intern CONS 01/01/25 Transmitted Consult Date of Service: January 02, 2025 Billing Provider: DOMINIK WHALEY MD Common Visit Codes: [id number] INP/OBS CARE(HIGH) DOMINIK WHALEY MD January 02, 2025 12:23
[2025-01-03] VITALS (7 sets, daily range): BP systolic 95–147; BP diastolic 56–106; PULSE 61–94; RESP 16–18; TEMP 96.7–98.4; O2SAT 96–100
--- NOTE | 2025-01-03 12:14 | DVHPN2 ---
Subjective Patient is seen and examined at bedside. No seizure activity. Telepsych has see the patient and cleared for discharge. Reviewed: Care Plan, H&P, Labs, Medications, Previous Orders, Radiology Changes from previous H/P or p: No Changes Objective Vitals Vital Signs Date Time Temp Pulse Resp B/P (MAP) Pulse Ox O2 Delivery O2 Flow Rate FiO2 01/03/25 09:00 97.2 61 18 116/69 (85) 98 97.2 01/03/25 08:00 Room Air* 0 21 Intake/Output Intake and Output 01/03/25 07:00 Intake Total 2650 ml Output Total 501 ml Balance 2149 ml Intake Oral 2650 ml Output Urine Total 500 ml Stool Total 1 ml # Voids 4 # Bowel Movements 2 General Appearance: Alert, Cooperative, No acute distress HEENT: Atraumatic, PERRLA, EOMI, Mucous membr. moist/pink Neck: Supple Cardiovascular: Regular rate, Normal S1, Normal S2, No murmurs, Gallops, Rubs Abdomen: Normal bowel sounds, Soft, No tenderness Neuro: Cranial nerves 3-12 NL Psych/Mental Status: Mental status NL Medications Current Medications Medications Dose Ordered Sig/Bobbi Route Start Time Stop Time Status Last Admin Dose Admin Sodium Chloride 10 ml Q8HR IV 12/28/24 22:00 01/02/25 14:00 10 ML Docusate Sodium 100 mg BIDPRN PRN PO 12/28/24 20:45 Acetaminophen 650 mg Q6HP PRN PO 12/28/24 20:45 Ondansetron HCl 4 mg Q4HP PRN IV 12/28/24 20:45 Enoxaparin Sodium 40 mg DAILY SC 12/29/24 10:00 01/03/25 09:42 40 MG Laboratory Results Laboratory Tests 01/02/25 06:24 Microbiology Microbiology Date/Time Source Procedure Growth Status 12/28/24 23:10 Nose MRSA Screen - Final Complete Labs and/or images reviewed: Labs reviewed by me Assessment/Plan Assessment/Plan Schizophrenia Dysarthria rule out stroke S/p right temporal craniotomy with 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 Psych has cleared the patient for discharge. Patient was discharged 12/29/24. Waiting for mental health case manager. Per RN, mental health case manager request to hold discharge for placement. Still waiting for placement Will also get PT for transfer to bed to wheelchair. Refill medication for seizure This medical document was created using an electronic medical record system with [employer] direct computerized dictation system. Although this document has been carefully reviewed, there may still be some phonetic and typographical errors. These areas are purely typographical due to imperfections of the software programs, and do not reflect any compromise in the patient's medical care. Plan discussed with: Patient, Other (RN) Date of Service: January 03, 2025 Billing Provider: DOMINIK WHALEY MD Common Visit Codes: [id number] INP/OBS CARE(HIGH) DOMINIK WHALEY MD January 03, 2025 12:14
[2025-01-04] VITALS (7 sets, daily range): BP systolic 108–132; BP diastolic 65–96; PULSE 65–89; RESP 16–20; TEMP 96.1–98.1; O2SAT 95–97
--- NOTE | 2025-01-04 18:11 | DVHPN2 ---
Subjective In bed resting Reviewed: Care Plan, H&P, Labs, Medications, Previous Orders, Radiology Changes from previous H/P or p: No Changes Objective Vitals Vital Signs Date Time Temp Pulse Resp B/P (MAP) Pulse Ox O2 Delivery O2 Flow Rate FiO2 01/04/25 16:32 97.5 89 18 122/96 (105) 97 97.5 01/04/25 08:00 Room Air* 0 21 Intake/Output Intake and Output 01/04/25 06:59 Intake Total 2100 ml Balance 2100 ml Intake Oral 2100 ml # Voids 9 # Bowel Movements 1 General Appearance: Alert, Cooperative, No acute distress HEENT: Atraumatic, PERRLA, EOMI, Mucous membr. moist/pink Neck: Supple Cardiovascular: Regular rate, Normal S1, Normal S2, No murmurs, Gallops, Rubs Abdomen: Normal bowel sounds, Soft, No tenderness Neuro: Cranial nerves 3-12 NL Psych/Mental Status: Mental status NL Medications Current Medications Medications Dose Ordered Sig/Bobbi Route Start Time Stop Time Status Last Admin Dose Admin Sodium Chloride 10 ml Q8HR IV 12/28/24 22:00 01/02/25 14:00 10 ML Docusate Sodium 100 mg BIDPRN PRN PO 12/28/24 20:45 Acetaminophen 650 mg Q6HP PRN PO 12/28/24 20:45 Ondansetron HCl 4 mg Q4HP PRN IV 12/28/24 20:45 Enoxaparin Sodium 40 mg DAILY SC 12/29/24 10:00 01/04/25 09:17 40 MG Laboratory Results Laboratory Tests 01/02/25 06:24 Microbiology Microbiology Date/Time Source Procedure Growth Status 12/28/24 23:10 Nose MRSA Screen - Final Complete Assessment/Plan Assessment/Plan Schizophrenia Dysarthria rule out stroke S/p right temporal craniotomy with 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 Psych has cleared the patient for discharge. Patient was discharged 12/29/24. Waiting for nurse case manager. Per RN, nurse case manager request to hold discharge for placement. Still waiting for placement Will also get PT for transfer to bed to wheelchair. Refill medication for seizure Plan discussed with: Patient Date of Service: January 04, 2025 Billing Provider: WALT SILVESTRE MD Common Visit Codes: [id number] INP/OBS CARE(HIGH) WALT SILVESTRE MD January 04, 2025 18:11
[2025-01-05] VITALS (7 sets, daily range): BP systolic 92–140; BP diastolic 54–86; PULSE 74–94; RESP 16–20; TEMP 97.6–98; O2SAT 95–100
--- NOTE | 2025-01-05 18:35 | DVHPN2 ---
Subjective In bed resting Reviewed: Care Plan, H&P, Labs, Medications, Previous Orders, Radiology Changes from previous H/P or p: No Changes Objective Vitals Vital Signs Date Time Temp Pulse Resp B/P (MAP) Pulse Ox O2 Delivery O2 Flow Rate FiO2 01/05/25 17:00 97.8 77 18 140/72 (94) 100 97.8 01/05/25 08:00 Room Air* 0 21 Intake/Output Intake and Output 01/05/25 07:00 Intake Total 2700 ml Output Total 800 ml Balance 1900 ml Intake Oral 2700 ml Output Urine Total 800 ml # Voids 2 # Bowel Movements 2 General Appearance: Alert, Cooperative, No acute distress HEENT: Atraumatic, PERRLA, EOMI, Mucous membr. moist/pink Neck: Supple Cardiovascular: Regular rate, Normal S1, Normal S2, No murmurs, Gallops, Rubs Abdomen: Normal bowel sounds, Soft, No tenderness Neuro: Cranial nerves 3-12 NL Psych/Mental Status: Mental status NL Medications Current Medications Medications Dose Ordered Sig/Bobbi Route Start Time Stop Time Status Last Admin Dose Admin Sodium Chloride 10 ml Q8HR IV 12/28/24 22:00 01/02/25 14:00 10 ML Docusate Sodium 100 mg BIDPRN PRN PO 12/28/24 20:45 Acetaminophen 650 mg Q6HP PRN PO 12/28/24 20:45 Ondansetron HCl 4 mg Q4HP PRN IV 12/28/24 20:45 Enoxaparin Sodium 40 mg DAILY SC 12/29/24 10:00 01/05/25 09:38 40 MG Laboratory Results Laboratory Tests 01/02/25 06:24 Microbiology Microbiology Date/Time Source Procedure Growth Status 12/28/24 23:10 Nose MRSA Screen - Final Complete Assessment/Plan Assessment/Plan Schizophrenia Dysarthria rule out stroke S/p right temporal craniotomy with 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 Psych has cleared the patient for discharge. Patient was discharged 12/29/24. Waiting for window caser. Per RN, window caser request to hold discharge for placement. Still waiting for placement Will also get PT for transfer to bed to wheelchair. Refill medication for seizure Plan discussed with: Patient Date of Service: Jan 05, 2025 Billing Provider: WALT SILVESTRE MD Common Visit Codes: [id number] INP/OBS CARE(HIGH) WALT SILVESTRE MD Jan 05, 2025 18:35
[2025-01-06] VITALS (8 sets, daily range): BP systolic 96–125; BP diastolic 55–90; PULSE 64–93; RESP 18–20; TEMP 97.4–98; O2SAT 94–97
[2025-01-06] MEDS: PNEUMOCOCCAL VACC POLYS 25 MCG/0.5 ML VIAL IM ONE (09:20)
--- NOTE | 2025-01-06 19:26 | DVHPN2 ---
Subjective Awaiting placement Reviewed: Care Plan, H&P, Labs, Medications, Previous Orders, Radiology Changes from previous H/P or p: Changes Objective Vitals Vital Signs Date Time Temp Pulse Resp B/P (MAP) Pulse Ox O2 Delivery O2 Flow Rate FiO2 01/06/25 16:47 98.0 70 20 120/71 (87) 97 98.0 01/06/25 08:00 Room Air* 0 21 Intake/Output Intake and Output 01/06/25 07:00 Intake Total 3125 ml Output Total 1600 ml Balance 1525 ml Intake Oral 3125 ml Output Urine Total 1600 ml # Bowel Movements 1 General Appearance: Alert, Cooperative, No acute distress HEENT: Atraumatic, PERRLA, EOMI, Mucous membr. moist/pink Neck: Supple Cardiovascular: Regular rate, Normal S1, Normal S2, No murmurs, Gallops, Rubs Abdomen: Normal bowel sounds, Soft, No tenderness Neuro: Cranial nerves 3-12 NL Psych/Mental Status: Mental status NL Medications Current Medications Medications Dose Ordered Sig/Bobbi Route Start Time Stop Time Status Last Admin Dose Admin Sodium Chloride 10 ml Q8HR IV 12/28/24 22:00 01/02/25 14:00 10 ML Docusate Sodium 100 mg BIDPRN PRN PO 12/28/24 20:45 Acetaminophen 650 mg Q6HP PRN PO 12/28/24 20:45 Ondansetron HCl 4 mg Q4HP PRN IV 12/28/24 20:45 Enoxaparin Sodium 40 mg DAILY SC 12/29/24 10:00 01/06/25 09:20 40 MG Laboratory Results Laboratory Tests 01/02/25 06:24 Microbiology Microbiology Date/Time Source Procedure Growth Status 12/28/24 23:10 Nose MRSA Screen - Final Complete Assessment/Plan Assessment/Plan Schizophrenia Dysarthria rule out stroke S/p right temporal craniotomy with 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
[2025-01-07] VITALS (7 sets, daily range): BP systolic 103–136; BP diastolic 62–90; PULSE 71–104; RESP 18–21; TEMP 96.7–98.1; O2SAT 94–98
--- NOTE | 2025-01-07 10:58 | DVHPN2 ---
Subjective Awaiting placement Reviewed: Care Plan, H&P, Labs, Medications, Previous Orders, Radiology Changes from previous H/P or p: Changes Objective Vitals Vital Signs Date Time Temp Pulse Resp B/P (MAP) Pulse Ox O2 Delivery O2 Flow Rate FiO2 01/07/25 08:46 96.8 74 21 115/69 (84) 98 96.8 01/07/25 08:00 Room Air* 0 21 Intake/Output Intake and Output 01/07/25 07:00 Intake Total 2020 ml Output Total 1400 ml Balance 620 ml Intake Oral 2020 ml Output Urine Total 1400 ml # Bowel Movements 1 General Appearance: Alert, Cooperative, No acute distress HEENT: Atraumatic, PERRLA, EOMI, Mucous membr. moist/pink Neck: Supple Cardiovascular: Regular rate, Normal S1, Normal S2, No murmurs, Gallops, Rubs Abdomen: Normal bowel sounds, Soft, No tenderness Neuro: Cranial nerves 3-12 NL Psych/Mental Status: Mental status NL Medications Current Medications Medications Dose Ordered Sig/Bobbi Route Start Time Stop Time Status Last Admin Dose Admin Sodium Chloride 10 ml Q8HR IV 12/28/24 22:00 01/07/25 06:00 10 ML Docusate Sodium 100 mg BIDPRN PRN PO 12/28/24 20:45 Acetaminophen 650 mg Q6HP PRN PO 12/28/24 20:45 Ondansetron HCl 4 mg Q4HP PRN IV 12/28/24 20:45 Enoxaparin Sodium 40 mg DAILY SC 12/29/24 10:00 01/07/25 09:08 40 MG Laboratory Results Laboratory Tests 01/02/25 06:24 Microbiology Microbiology Date/Time Source Procedure Growth Status 12/28/24 23:10 Nose MRSA Screen - Final Complete Assessment/Plan Assessment/Plan Schizophrenia Dysarthria rule out stroke S/p right temporal craniotomy with 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
[2025-01-08 05:00] VITALS: BP 110/70; PULSE 89; RESP 18; TEMP 97.9; O2SAT 94
[2025-01-08 08:00] VITALS: RESP 18; O2SAT 98
[2025-01-08 13:07] VITALS: BP 139/86; PULSE 80; RESP 18; TEMP 97.4; O2SAT 96
[2025-01-08 17:21] VITALS: BP 142/86; PULSE 95; RESP 19; TEMP 97.3; O2SAT 98
[2025-01-08 20:00] VITALS: PULSE 78; RESP 19; O2SAT 96
--- NOTE | 2025-01-08 20:14 | DVHPN2 ---
Subjective Awaiting placement Reviewed: Care Plan, H&P, Labs, Medications, Previous Orders, Radiology Changes from previous H/P or p: Changes Objective Vitals Vital Signs Date Time Temp Pulse Resp B/P (MAP) Pulse Ox O2 Delivery O2 Flow Rate FiO2 01/08/25 17:21 97.3 95 19 142/86 (104) 98 97.3 01/08/25 08:00 Room Air* 0 21 Intake/Output Intake and Output 01/08/25 06:59 Intake Total 4350 ml Output Total 1000 ml Balance 3350 ml Intake Oral 4350 ml Output Urine Total 1000 ml # Voids 10 # Bowel Movements 2 General Appearance: Alert, Cooperative, No acute distress HEENT: Atraumatic, PERRLA, EOMI, Mucous membr. moist/pink Neck: Supple Cardiovascular: Regular rate, Normal S1, Normal S2, No murmurs, Gallops, Rubs Abdomen: Normal bowel sounds, Soft, No tenderness Neuro: Cranial nerves 3-12 NL Psych/Mental Status: Mental status NL Medications Current Medications Medications Dose Ordered Sig/Bobbi Route Start Time Stop Time Status Last Admin Dose Admin Sodium Chloride 10 ml Q8HR IV 12/28/24 22:00 01/07/25 06:00 10 ML Docusate Sodium 100 mg BIDPRN PRN PO 12/28/24 20:45 Acetaminophen 650 mg Q6HP PRN PO 12/28/24 20:45 Ondansetron HCl 4 mg Q4HP PRN IV 12/28/24 20:45 Enoxaparin Sodium 40 mg DAILY SC 12/29/24 10:00 01/08/25 09:37 40 MG Laboratory Results Laboratory Tests 01/02/25 06:24 Microbiology Microbiology Date/Time Source Procedure Growth Status 12/28/24 23:10 Nose MRSA Screen - Final Complete Assessment/Plan Assessment/Plan Schizophrenia Dysarthria rule out stroke S/p right temporal craniotomy with 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
[2025-01-08 21:00] VITALS: BP 123/64; PULSE 78; RESP 19; TEMP 97.6; O2SAT 96
[2025-01-09 00:56] VITALS: BP 128/68; PULSE 70; RESP 18; TEMP 97.5; O2SAT 96
[2025-01-09 05:14] VITALS: BP 106/58; PULSE 72; RESP 18; TEMP 97.7; O2SAT 98
[2025-01-09 08:00] VITALS: RESP 18; O2SAT 98
[2025-01-09 08:46] VITALS: BP 113/67; PULSE 54; RESP 17; TEMP 98.4; O2SAT 97
--- NOTE | 2025-01-09 10:36 | DVHPN2 ---
Subjective Awaiting placement No new complaints Reviewed: Care Plan, H&P, Labs, Medications, Previous Orders, Radiology Changes from previous H/P or p: Changes Objective Vitals Vital Signs Date Time Temp Pulse Resp B/P (MAP) Pulse Ox O2 Delivery O2 Flow Rate FiO2 01/09/25 08:46 98.4 54 17 113/67 (82) 97 98.4 01/09/25 08:00 Room Air* 0 21 Intake/Output Intake and Output 01/09/25 07:00 Intake Total 2440 ml Output Total 1000 ml Balance 1440 ml Intake Oral 2440 ml Output Urine Total 1000 ml # Voids 4 # Bowel Movements 2 General Appearance: Alert, Cooperative, No acute distress HEENT: Atraumatic, PERRLA, EOMI, Mucous membr. moist/pink Neck: Supple Cardiovascular: Regular rate, Normal S1, Normal S2, No murmurs, Gallops, Rubs Abdomen: Normal bowel sounds, Soft, No tenderness Neuro: Cranial nerves 3-12 NL Psych/Mental Status: Mental status NL Medications Current Medications Medications Dose Ordered Sig/Bobbi Route Start Time Stop Time Status Last Admin Dose Admin Sodium Chloride 10 ml Q8HR IV 12/28/24 22:00 01/09/25 05:05 10 ML Docusate Sodium 100 mg BIDPRN PRN PO 12/28/24 20:45 Acetaminophen 650 mg Q6HP PRN PO 12/28/24 20:45 Ondansetron HCl 4 mg Q4HP PRN IV 12/28/24 20:45 Enoxaparin Sodium 40 mg DAILY SC 12/29/24 10:00 01/09/25 09:27 40 MG Laboratory Results Laboratory Tests 01/02/25 06:24 Microbiology Microbiology Date/Time Source Procedure Growth Status 12/28/24 23:10 Nose MRSA Screen - Final Complete Assessment/Plan Assessment/Plan Schizophrenia Dysarthria rule out stroke S/p right temporal craniotomy with large areas of gliosis/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
[2025-01-09 12:37] VITALS: BP 146/89; PULSE 79; RESP 17; TEMP 98.1; O2SAT 95
[2025-01-09 16:48] VITALS: BP 107/54; PULSE 75; RESP 18; TEMP 98.6; O2SAT 95
== END 2025-01-09 18:45 | disposition home or self-care (01) | DRG 71 ==
LOC: EDBD 20:32 → ER 20:32 → OVERFLOW 12-28 20:20 → WEST WING 12-28 22:26
PROVIDERS: ADMIT Internal Medicine Geriatric Medicine; ATTEND Internal Medicine Geriatric Medicine
DX: G93.41 Metabolic encephalopathy (principal); Z59.00 Homelessness unspecified; R47.1 Dysarthria and anarthria; F20.9 Schizophrenia, unspecified; R56.9 Unspecified convulsions; Z87.820 Personal history of traumatic brain injury
CPT/HCPCS: 36415; 70450; 80053; 80061; 80320; 80329; 82947; 82962; 83036; 85025; 87081; 93005; 97110; 97116; 97163; G0378